=== PATIENT | female | born 2000 | race Two or more races ===

== ENCOUNTER 2024-06-24 19:01 | Inpatient (IN) | payer MEDICAID, SELFPAY ==
[2024-06-24 19:16] VITALS: BMI 39.7
[2024-06-24 19:24] VITALS: BP 116/68; PULSE 72; RESP 100; RESP 17; TEMP 36.3
--- NOTE | 2024-06-24 20:50 | PD.LDHP ---
Documentation for date of: 06/24/24 OB Labor/Induct. HPI History of Present Illness History of present illness: 24 y/o @40w4d, per 24 w scan, here with contractions . Patient was scheduled for IOL at 40 weeks , however declined, wanted to wait for her labor to begin spontaneously. Denies any leaking bleeidng . Has been feeling contraction every 5 minutes History of Present Adequate Care: Yes Abnormal ultrasound findings: suboptimal dating Anatomy wnl Labs Narrative: Late to care GTT wnl Meds Home Medications and Allergies Home Medications ?Medication ?Instructions ?Recorded ?Confirmed ?Type No Known Home Medications 06/24/24 06/24/24 History Allergies Allergy/AdvReac Type Severity Reaction Status Date / Time No Known Allergies Allergy Verified 06/24/24 19:17 OB Exam Physical Exam Vital signs: Temp Pulse Resp BP 97.4 F 72 17 116/68 06/24/24 19:24 06/24/24 19:24 06/24/24 19:24 06/24/24 19:24 Constitutional Constitutional: no acute distress Routine HEENT Exam Head: Present normocephalic and atraumatic Eye: Present EOMI and PERRL ENT: Present mucous membranes moist Routine Neck Exam Neck: Present supple and trachea midline Routine Cardiovascular Exam Cardiovascular: Present RRR Routine Abdominal Exam Abdominal: Present soft and normoactive bowel sounds Detailed Labor and Delivery Exam Dilation (cm): 3-4 Effacement (%): 50 Cervix position: anterior Consistency: medium Comments: category 1 fht contraction 4-5 min Routine Extremities Exam Extremities: Present full ROM Routine Skin Exam Skin: Present intact, dry and warm Routine Neurological Exam Neurological: Present alert, oriented X3 and CN II-XII intact Routine Psychiatric Exam Psychiatric: Present normal affect and normal thought process OB Results Impressions Impression: 24 y/o @ 40w4d , admitted for labor managemnet GBS -ve Cephalic , per Triage nurse examination GTT wnl, late to [facility] Anatomy wnl OB Assessment & Plan Additional Plan Additional Plan Comment: admit to L&D pitocin to be started FHT monitoring continous can have epidural if needed
[2024-06-24 21:37] VITALS: BP 116/58; PULSE 77; RESP 18; TEMP 36.8
[2024-06-24 21:46] LABS: Amphetamine/Metham Scrn,Ur OB Negative (Negative); Benzoylecgonine Screen, Ur OB Negative (Negative); Opiate Screen,Urine OB Negative (Negative); THC Screen,Urine OB Negative (Negative)
[2024-06-24 21:47] LABS: Basophils % (Auto) 0 % (0-2.5); Eosinophils # (Auto) 0.3 Thou/mm3 (0.0-0.5); Eosinophils % (Auto) 3 % (0-10); Hematocrit 36.5 % (36.0-46.0); Hemoglobin 12.3 g/dL (12.0-16.0); Immature Granulocytes % (Auto) 1 % (0-0); Immature Granulocytes Auto 0.04 Thou/mm3 (0.00-0.00); Lymphocytes # (Auto) 1.9 Thou/mm3 (1.0-4.8); Lymphocytes % (Auto) 21 % (10-50); Mean Corpuscular HGB Conc 33.7 g/dl (31.0-37.0); Mean Corpuscular Hemoglobin 28.7 pg (25.0-35.0); Mean Corpuscular Volume 85 fL (80-100); Monocytes # (Auto) 0.7 Thou/mm3 (0.0-0.8); Monocytes % (Auto) 8 % (0-12); Neutrophils # (Auto) 5.8 Thou/mm3 (1.8-7.7); Neutrophils % (Auto) 67 % (37-80); Nucleated Red Blood Cell % 0 /100 WBC (0); Platelet Count 265 Thou/mm3 (140-440); RDW Standard Deviation 38.9 fL (36.4-46.3); Red Blood Count 4.28 Miln/mm3 (4.00-5.20); White Blood Count 8.8 Thou/mm3 (3.6-11.0)
[2024-06-24 22:08] VITALS: BP 113/62; PULSE 72
[2024-06-24 22:22] LABS: Syphilis Nonreactive (Nonreactive)
[2024-06-24 23:09] VITALS: BP 103/51; PULSE 74
[2024-06-24] MEDS: OXYTOCIN in NS 30 units 30 UNIT/500 ML BAG IV (23:25)
[2024-06-24] MEDS: RINGERS LACTATED 1000 ML 1,000 ML 125 ML IV (23:25)
[2024-06-24 23:38] VITALS: BP 95/52; PULSE 71
[2024-06-25] VITALS (147 sets, daily range): BP systolic 82–143; BP diastolic 44–104; PULSE 66–106; RESP 16–19; TEMP 36.4–36.9; O2SAT 91–100
--- NOTE | 2024-06-25 06:31 | PD.LDPN ---
Documentation for date of: 06/25/24 OB Labor Progress Note Pelvic Exam Dilation (cm): 4-5 Effacement (%): 50 Amniotic membrane status: Ruptured Comments: Scant fluid clear Status status: Category l Assessment and Plan Comments: Pitocin continue labor management to continue continuous heart tone monitoring
--- NOTE | 2024-06-25 08:40 | PD.LDDELS ---
Data ([place]) Data Hx Section: No : 2 Para: 1 Term: 1 : 0 : 0 Delivery Data ([place]) Labor Data Stimulated/Augmented: Yes Induction: Yes Method: AROM ROM Date: 06/25/24 ROM Time: 05:49 Rupture Type: AROM Amniotic Fluid: Clear Delivery Data EDC: 06/20/24 Labor Onset Stage 1 Date: 06/25/24 Labor Onset Stage 1 Time: 05:49 Labor Onset Stage 2 Date: 06/25/24 Labor Onset Stage 2 Time: 08:10 Delivery Date: 06/25/24 Delivery Time: 08:27 Gestational age (weeks): 40 Gestational age (days): 5 Placenta Delivery Date: 06/25/24 Placenta Delivery Time: 08:28 Delivered by: Destinee Gutierrez Delivery nurse: Eusebia Howard Underground Drill Operator at delivery: No Support person(s) at delivery: FODewey Other staff at delivery: Nursery Nurse Other staff at delivery: Janey Pickard Delivery Method Delivery: Vaginal Delivery Type: Spontaneous Presentation: Vertex Position: OA Anesthesia Type Primary Anesthesia: Epidural Secondary Anesthesia: None Placenta Placenta Delivery: Spontaneous Placenta Cultures Obtained: No Placenta Sent for Examination: No Episiotomy Episiotomy: None EBL Estimated blood loss (ml): 200 Umbilical Cord Umbilical Vessels: 3 Nuchal Cord: None Body Cord: None Additional Procedures Patient is a 24-year-old -0-0-1 status post vaginal delivery 4 years ago in [place]. Per patient the baby weighed about 8 pounds and she had no problems. I took over patient's care at 7:00 in the morning. She was induced for postdates at 40-5/7 weeks. Patient went on to progress to complete by about 8:15 in the morning she pushed through 4 contractions delivering a liveborn female at 0827 in the morning. Findings liveborn female in the [place] presentation with no nuchal cord or meconium Apgars were 8 and 9 weight was 3200 g. The placenta was complete spontaneous grossly normal delivering approximately 3 minutes after the baby. Complications were none condition both mom and were in stable condition in the delivery room. The patient sustained no tears and had no episiotomy. Complications Complications: None Data ([place]) [place] Data Infant Gender: Female Weight Grams: 3200 1 Minute Total: 8 5 Minute Total: 9
[2024-06-25] MEDS: OXYTOCIN in NS 20 units 20 UNIT/1,000 ML BAG 125 UNIT IV (09:07)
[2024-06-25 15:37] LABS: Basophils % (Auto) 0 % (0-2.5); Eosinophils # (Auto) 0.1 Thou/mm3 (0.0-0.5); Eosinophils % (Auto) 1 % (0-10); Hematocrit 34.8 % (36.0-46.0); Hemoglobin 11.6 g/dL (12.0-16.0); Immature Granulocytes % (Auto) 0 % (0-0); Immature Granulocytes Auto 0.03 Thou/mm3 (0.00-0.00); Lymphocytes # (Auto) 1.5 Thou/mm3 (1.0-4.8); Lymphocytes % (Auto) 13 % (10-50); Mean Corpuscular HGB Conc 33.3 g/dl (31.0-37.0); Mean Corpuscular Hemoglobin 28.4 pg (25.0-35.0); Mean Corpuscular Volume 85 fL (80-100); Monocytes # (Auto) 0.7 Thou/mm3 (0.0-0.8); Monocytes % (Auto) 6 % (0-12); Neutrophils # (Auto) 8.7 Thou/mm3 (1.8-7.7); Neutrophils % (Auto) 79 % (37-80); Nucleated Red Blood Cell % 0 /100 WBC (0); Platelet Count 251 Thou/mm3 (140-440); RDW Standard Deviation 39.8 fL (36.4-46.3); Red Blood Count 4.08 Miln/mm3 (4.00-5.20); White Blood Count 11.1 Thou/mm3 (3.6-11.0)
[2024-06-25] MEDS: IBUPROFEN TAB 400 MG TABLET 800 MG PO (16:23)
--- NOTE | 2024-06-25 20:42 | PC.NURSE ---
06/25/24 2000: Educated mother and father of baby on /formula feeding/feeding sheet and education using [facility] interpreter and translator [id number].
[2024-06-26 04:06] VITALS: BP 95/60; PULSE 80; RESP 18; TEMP 36.6; O2SAT 97
[2024-06-26 08:00] VITALS: BP 104/69; PULSE 78; RESP 17; TEMP 36.9; O2SAT 97
--- NOTE | 2024-06-26 14:21 | ESDS_ITS ---
DS: Providers Provider Date of admission: 06/24/24 20:44 Primary care physician: Physician No Primary/Family Admitting Provider: Jacki Javier MD Attending Provider on Admission: Destinee Gutierrez MD Consults: 06/25/24 08:46 Referral Routine Comment: Attending Provider on DC: Destinee Gutierrez MD Discharging Provider: Destinee Gutierrez MD Anticipated date of discharge: 06/26/24 DS: Diagnosis Discharge Diagnosis (1) Term of : Status: Acute Problem List Completed Was Problem List Reviewed/Reconciled?: Yes Summary/Hosp Course Brief History: 24 y/o @40w4d, per 24 w scan, here with contractions . Patient was scheduled for IOL at 40 weeks , however declined, wanted to wait for her labor to begin spontaneously. Denies any leaking bleeidng . Has been feeling contraction every 5 minutes Peripartum Data Delivery Method: Normal Vaginal Delivery Episiotomy Description: None Laceration Description: no complications: none Status at Discharge Functional status at discharge: independent ambulation Overall status at discharge: patient is progressing back to baseline Time Spent with Patient Time attestation: Total time spent providing and/or coordinating discharge services: Time spent: Less than 30 minutes Specific discharge activities: Patient was told to call for heavy vaginal bleeding, fevers, depression. Exam Vital Signs Temp Pulse Resp BP Pulse Ox O2 Del Method 98.5 F 78 17 104/69 97 Room Air 06/26/24 08:00 06/26/24 08:00 06/26/24 08:00 06/26/24 08:00 06/26/24 08:00 06/26/24 08:00 Narrative Exam Patient is alert and oriented x 3 in no apparent distress Routine Abdominal Exam Abdominal: Present soft Comments: Fundus firm nontender at umbilicus. Discharge Plan Plan Patient Disposition: HOME (Self Care) Disposition Comment: Stable Prescriptions/Referrals Prescriptions/Med Rec: No Action No Known Home Medications Referrals: No Primary/Family,Physician [Primary Care Provider] - Patient/Caregiver Discharge Instructions Meds to Beds: No Discharge Activity: activity as tolerated Other Discharge Activity Instructions:: Pelvic rest x 6 weeks. Follow-up in clinic in 6 weeks Other Discharge Diet Instructions: General diet drink lots of fluids Education Materials: After a Vaginal , Breast Care After , Print Language: Kiswahili Activity Restrictions/Additional Instructions: Call for fevers, Heavy VB, post depression Stand Alone Forms: [place] Award Info., Patient Portal Info Letter Discharge Order Discharge Orders: Discharge (Routine); Ordered 06/26/24 Ordered By: Destinee Gutierrez Planned Discharge Date 06/26/24
== END 2024-06-26 16:45 | disposition home or self-care (01) | DRG 560 ==
LOC: S4SX 06-25 09:13 → S4NX 06-25 10:37
PROVIDERS: Admitting Provider Student in an Organized Health Care Education/Training Program; Visit Provider Obstetrics & Gynecology
DX: O48.0 Post-term pregnancy (principal); Z37.0 Single live birth; Z3A.40 40 weeks gestation of pregnancy
CPT/HCPCS: 36415; 59025; 59409; 80307; 85025; 86780; 86850; 86900; 86901; 94762; J2590; J2795; J3010; J7120; A9270